=== PATIENT | female | born 1965 | race American Indian/Alaskan Native ===

== ENCOUNTER 2016-11-10 08:50 | Observation (INO) | payer OTHER ==
[2016-11-10] MEDS ORDERED: VERSED IV ONE (09:21)
[2016-11-10] MEDS ORDERED: SUBLIMAZE IV ONE (09:21)
[2016-11-10] MEDS ORDERED: HURRICAINE ONE 20% TOPICAL SPRAY MM NR (10:00)
[2016-11-10] MEDS ORDERED: NACL 0.9% 500 ML 500 ML IV SCH (11:00)
[2016-11-10] MEDS ORDERED: APRESOLINE ONE (11:24)
[2016-11-10] MEDS ORDERED: APRESOLINE IV ONE (11:48)
--- NOTE | 2016-11-10 11:58 | Short Stay Summary ---
Short Stay Documentation Date of service: 11/10/16 - History H&P: obtained from office - Allergies and Medications Current Medications: Allergies No Known Allergies Allergy (Verified 11/10/16 09:20) Home Medications Medication Instructions Recorded Confirmed Last Taken Type Furosemide [Lasix TAB] 40 mg PO QDAY #30 tablet 11/09/16 11/10/16 11/09/16 Rx Lisinopril [Zestril TAB] 10 mg PO QDAY #30 tablet 11/09/16 11/10/16 11/09/16 Rx Metoprolol [Lopressor TAB] 25 mg PO Q8H #90 tablet 11/09/16 11/10/16 11/09/16 Rx Potassium Chloride 10 meq PO QDAY #30 capsule.er 11/09/16 11/10/16 11/09/16 Rx Active Medications Benzocaine (Hurricaine One 20% Topical [place]) 3 spray MM PREOP NR Stop: 11/10/16 23:59 Hydralazine HCl (Apresoline) 10 mg IV ONCE ONE Stop: 11/10/16 11:49 Sodium Chloride (Nacl 0.9% 500 Ml) 500 mls @ 50 mls/hr IV DIRECT [place] - Physical exam General appearance: no acute distress Integumentary: no rash HEENT: Atraumatic Lungs: Clear to auscultation Breasts: deferred Heart: Regular rate Gastrointestinal: normal Female Genitourinary: deferred Rectal Exam: deferred Extremities: no ischemia Neurological: Normal gait - Brief post op/procedure progress note Date of procedure: 11/10/16 Pre-op diagnosis: Mitral regurgitation Post-op diagnosis: same Procedure: DORI Anesthesia: MAC Findings: See report Surgeon: JESSICA JUSTIN Estimated blood loss: none Pathology: none Condition: stable - Hospital course Hospital course: Uneventful - Disposition Condition at discharge: Good Disposition: [id number] TO HOME OR SELFCARE Short Stay Discharge Plan Activity: advance as tolerated Weight Bearing Status: Partial Weight Bearing Diet: low fat, low cholesterol, low salt
[2016-11-10] MEDS ORDERED: TYLENOL PO PRN (15:31)
[2016-11-10] MEDS ORDERED: DULCOLAX PR PRN (16:48)
[2016-11-10] MEDS ORDERED: MILK OF MAGNESIA PO PRN (16:48)
[2016-11-10] MEDS ORDERED: ZOFRAN IV PRN (16:48)
--- NOTE | 2016-11-10 16:53 | History and Physical Report ---
History of Present Illness Date of examination: 11/10/16 History of present illness: Obtained from the office. Medications and Allergies Allergies Allergy/AdvReac Type Severity Reaction Status Date / Time No Known Allergies Allergy Verified 11/10/16 09:20 Home Medications Medication Instructions Recorded Confirmed Last Taken Type Furosemide [Lasix TAB] 40 mg PO QDAY #30 tablet 11/09/16 11/10/16 11/09/16 Rx Lisinopril [Zestril TAB] 10 mg PO QDAY #30 tablet 11/09/16 11/10/16 11/09/16 Rx Metoprolol [Lopressor TAB] 25 mg PO Q8H #90 tablet 11/09/16 11/10/16 11/09/16 Rx Potassium Chloride 10 meq PO QDAY #30 capsule.er 11/09/16 11/10/16 11/09/16 Rx Active Meds: Active Medications Acetaminophen (Tylenol) 500 mg PO Q4H PRN PRN Reason: Pain, Mild (1-3) Last Admin: 11/10/16 16:11 Dose: 500 mg Benzocaine (Hurricaine One 20% Topical [place]) 3 spray MM PREOP NR Stop: 11/10/16 23:59 Last Admin: 11/10/16 11:16 Dose: 3 spray Sodium Chloride (Nacl 0.9% 500 Ml) 500 mls @ 50 mls/hr IV DIRECT [place] Last Admin: 11/10/16 10:50 Dose: 50 mls/hr Physical Examination Vital Signs Temp Pulse Resp BP Pulse Ox 97.3 F L 75 18 143/87 97 11/10/16 09:38 11/10/16 09:38 11/10/16 09:38 11/10/16 09:38 11/10/16 09:38 Assessment and Plan Peripartum cardiomyopathy, 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 Fluid and salt restriction. Medical therapy for NICMP. Awaits Lifevest placement before discharge.
[2016-11-10 20:28] VITALS: BP 156/69
[2016-11-10] MEDS ORDERED: LOPRESSOR PO SCH (22:00)
--- NOTE | 2016-11-10 23:04 | Progress Note ---
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 Fluid and salt restriction. Medical therapy for NICMP. Awaits Lifevest placement before discharge. Subjective Date of service: 11/11/16 Interval history: No acute events. Resting comfortably. No chest pain or SOB. Objective Vital Signs Temp Pulse Pulse Pulse Pulse Pulse Resp 11/10/16 22:27 11/10/16 22:25 73 11/10/16 21:59 98 H 11/10/16 20:28 98.2 F 73 18 11/10/16 17:30 91 H 11/10/16 16:30 93 H 11/10/16 15:30 94 H 11/10/16 14:45 91 H 11/10/16 14:15 107 H 11/10/16 13:45 94 H 11/10/16 13:15 85 11/10/16 12:45 88 11/10/16 12:30 92 H 11/10/16 12:15 97 H 11/10/16 12:00 95 H 11/10/16 11:30 95 H 11/10/16 11:27 93 H 11/10/16 11:25 93 H 11/10/16 11:20 93 H 11/10/16 11:17 112 H 11/10/16 11:05 86 11/10/16 09:38 97.3 F L 75 18 Resp Resp Resp BP BP BP BP 11/10/16 22:27 11/10/16 22:25 156/69 11/10/16 21:59 11/10/16 20:28 156/69 11/10/16 17:30 19 151/86 11/10/16 16:30 25 H 131/73 11/10/16 15:30 20 121/75 11/10/16 14:45 22 133/95 11/10/16 14:15 25 H 128/78 11/10/16 13:45 22 141/80 11/10/16 13:15 26 H 141/75 11/10/16 12:45 25 H 129/79 11/10/16 12:30 24 134/86 11/10/16 12:15 29 H 140/92 11/10/16 12:00 18 140/87 11/10/16 11:30 18 178/108 11/10/16 11:27 180/119 11/10/16 11:25 16 180/119 11/10/16 11:20 18 187/110 11/10/16 11:17 29 H 173/91 11/10/16 11:05 18 11/10/16 09:38 143/87 BP Pulse Ox Pulse Ox Pulse Ox Pulse Ox 11/10/16 22:27 97 11/10/16 22:25 11/10/16 21:59 11/10/16 20:28 97 11/10/16 17:30 99 11/10/16 16:30 99 11/10/16 15:30 97 11/10/16 14:45 96 11/10/16 14:15 98 11/10/16 13:45 96 11/10/16 13:15 96 11/10/16 12:45 96 11/10/16 12:30 97 11/10/16 12:15 96 11/10/16 12:00 100 11/10/16 11:30 99 11/10/16 11:27 11/10/16 11:25 99 11/10/16 11:20 99 11/10/16 11:17 99 11/10/16 11:05 146/103 99 11/10/16 09:38 97
[2016-11-11] MEDS ORDERED: LASIX PO SCH (10:00)
[2016-11-11] MEDS ORDERED: NON-FORMULARY (Potassium Chloride [Potassium Chloride] 10 MEQ) PO SCH (10:00)
[2016-11-11] MEDS ORDERED: ZESTRIL PO SCH (10:00)
[2016-11-11] MEDS ORDERED: K-DUR PO SCH (10:00)
== END 2016-11-10 22:27 | disposition home or self-care (01) ==
LOC: OPU 08:50 → EDSTATUS 09:30 → 4A 16:48
PROVIDERS: ADMIT Internal Medicine; ATTEND Internal Medicine Cardiovascular Disease
DX: I34.1 Nonrheumatic mitral (valve) prolapse (principal); I10 Essential (primary) hypertension; R42 Dizziness and giddiness; R94.31 Abnormal electrocardiogram [ECG] [EKG]; O99.43 Diseases of the circulatory system complicating the puerperium; I42.9 Cardiomyopathy, unspecified; Z86.79 Personal history of other diseases of the circulatory system
CPT/HCPCS: 93312; 93320; 93325; 96374; 96375; G0378; J0360; J2250; J3010; J7040